=== PATIENT | male | born 1985 | race Two or more races ===

== ENCOUNTER 2022-12-23 09:27 | Outpatient (CLI) | payer OTHER, SELFPAY | END 2022-12-23 09:28 | disposition home or self-care (01) | LOC: NFLDREF 12-24 01:57 | PROVIDERS: PCP Family Medicine; Referring Provider Family Medicine; Visit Provider Family Medicine | DX: E66.01 Morbid (severe) obesity due to excess calories (principal); R63.4 Abnormal weight loss; E13.9 Other specified diabetes mellitus without complications; E11.69 Type 2 diabetes mellitus with other specified complication; E78.5 Hyperlipidemia, unspecified; R53.83 Other fatigue; Z13.1 Encounter for screening for diabetes mellitus | CPT/HCPCS: 80053; 80061; 84443 ==

== ENCOUNTER 2023-05-19 09:00 | Outpatient (CLI) | payer SELFPAY | END 2023-05-19 09:01 | disposition home or self-care (01) | LOC: NFLDREF 18:39 | PROVIDERS: PCP Family Medicine; Referring Provider Family Medicine; Visit Provider Family Medicine | DX: E11.69 Type 2 diabetes mellitus with other specified complication (principal); E13.9 Other specified diabetes mellitus without complications; E78.5 Hyperlipidemia, unspecified | CPT/HCPCS: 80053; 80061; 82043; 82570 ==

== ENCOUNTER 2024-06-14 10:07 | Outpatient (CLI) | payer OTHER, SELFPAY | END 2024-06-14 10:08 | disposition home or self-care (01) | LOC: NFLDREF 06-19 08:08 | PROVIDERS: Visit Provider Physician Assistant Medical | DX: E13.9 Other specified diabetes mellitus without complications (principal); E78.2 Mixed hyperlipidemia; Z79.84 Long term (current) use of oral hypoglycemic drugs; Z13.29 Encounter for screening for other suspected endocrine disorder | CPT/HCPCS: 80053; 80061; 82043; 82570; 84443 ==